=== PATIENT | male | born 1965 | race Caucasian/White ===

== ENCOUNTER 2022-05-01 16:20 | Emergency (ER) | payer OTHER, SELFPAY ==
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
[2022-05-01 16:22] VITALS: BP 172/91; PULSE 52; RESP 20; TEMP 36.4; O2SAT 100
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
[2022-05-01] MEDS: IBUPROFEN 600 MG TABLET PO (17:28)
[2022-05-01] MEDS: ACETAMINOPHEN 325 MG TABLET 650 MG PO (17:28)
== END 2022-05-01 18:27 | disposition home or self-care (01) ==
PROVIDERS: Emergency Provider Emergency Medicine; PCP Internal Medicine
DX: S06.0X0A Concussion without loss of consciousness, initial encounter (principal); S16.1XXA Strain of muscle, fascia and tendon at neck level, initial encounter; V43.62XA Car passenger injured in collision with other type car in traffic accident, initial encounter
CPT/HCPCS: 70450; 72125; 99284; A9270